=== PATIENT | female | born 1930 | race Caucasian/White ===

== ENCOUNTER 2017-11-21 09:02 | Outpatient (CLI) | payer MEDICARE, OTHER | END 2017-11-21 09:03 | disposition home or self-care (01) | LOC: BICULT 09:02 | PROVIDERS: ATTEND Internal Medicine | DX: R59.9 Enlarged lymph nodes, unspecified (principal) | CPT/HCPCS: 76536 ==

== ENCOUNTER 2021-11-30 21:46 | Inpatient (IN) | payer OTHER, MEDICARE ==
[2021-11-30] MEDS ORDERED: Ondansetron PF 4 MG/2 ML Vial ONE (22:22)
[2021-11-30] MEDS ORDERED: Morphine 4 MG/ML VIAL ONE ×2 (22:22→23:34)
[2021-11-30 23:07] LABS: #Lymphocytes 0.7 thou/uL (1.20-3.40); #Monocytes 0.3 thou/uL (0.11-0.59); #Neutrophils 6.1 thou/uL (1.40-6.50); %Basophils 0.2 % (0.0-1.0); %Eosinophils 0.3 % (0.0-10.0); %Lymphocytes 9.4 % (21.0-51.0); %Monocytes 3.8 % (0.0-10.0); %Neutrophils 86.3 % (42.0-75.0); Hemoglobin 10.8 g/dL (12.0-16.0); Mean Corpuscular HGB CONC 31.6 g/dL (32.0-36.0); Mean Corpuscular Hemoglobin 30.7 pg (27.0-31.0); Mean Corpuscular Volume 97.2 fL (78.0-98.0); Mean Platelet Volume 7.2 fL (7.4-10.4); Platelet Count 159 thou/uL (130-400); RBC Distribution Width 12.6 % (11.5-14.5); Red Blood Cell (RBC) Count 3.51 mill/uL (4.20-5.40); White Blood Cell (WBC) Count 7.1 thou/uL (4.8-10.8)
[2021-11-30 23:22] LABS: Anion Gap 15 mmol/L (10-20); BUN (Urea Nitrogen) 15 mg/dL (9.8-20.1); Calc. Creatinine Clearance 0 mL/min (70-130); Carbon Dioxide 23 mmol/L (23-31); Chloride 99 mmol/L (98-107); Potassium 4.3 mmol/L (3.5-5.1); Sodium 133 mmol/L (136-145)
[2021-11-30 23:23] LABS: ALT (SGPT) 13 U/L (8-55); AST (SGOT) 24 U/L (5-34); Albumin 4.2 g/dL (3.4-4.8); Alkaline Phosphatase 111 U/L (40-110); Bilirubin, Total 0.9 mg/dL (0.2-1.2); CK (CPK) 99 U/L (29-168); Calcium 8.9 mg/dL (7.8-10.44); Globulin 3.1 g/dL (2.4-3.5); Glucose 108 mg/dL (83-110); Protein, Total 7.3 g/dL (5.8-8.1)
[2021-11-30] MEDS ORDERED: Dextrose 5% in Water 1,000 ML IV PRN (23:34)
[2021-11-30] MEDS ORDERED: Ondansetron PF 4 MG/2 ML Vial IVP PRN (23:34)
[2021-11-30] MEDS ORDERED: Cyclobenzaprine 10 MG TAB ONE (23:34)
[2021-11-30] MEDS ORDERED: hydrALAZINE 20 MG/ML VIAL SLOW IVP PRN (23:34)
[2021-11-30] MEDS ORDERED: Dextrose 50% Abboject 50 ML SYRINGE SLOW IVP PRN (23:34)
[2021-11-30] MEDS ORDERED: Gabapentin 300 MG CAP PO SCH (23:45)
[2021-12-01 00:07] LABS: Magnesium 1.9 mg/dL (1.6-2.6); Phosphorus 3.2 mg/dL (2.3-4.7)
[2021-12-01] MEDS ORDERED: Sodium Phosphate 15 MMOL in Sodium Chloride 0.9% 250 ML 250 ML IVPB SCH (00:30)
[2021-12-01] MEDS: Acetaminophen 500 MG TAB PO SCH ×4 (02:45→23:22)
[2021-12-01] MEDS: traMADol HCl 50 MG TAB PO SCH ×3 (02:46→15:34)
[2021-12-01 02:58] LABS: Bilirubin Negative (Negative); Blood, Urine Negative (Negative); Clarity Clear (Clear); Glucose, Urine (Dipstick) Normal (Negative); Ketone, Urine 10 mg/dL (Negative); Leukocyte Negative Leu/uL (Negative); Nitrite Negative (Negative); Protein, Urine (Dipstick) Negative (Neg-Trace); Specific Gravity, Urine 1.009 (1.002-1.036); Urobilinogen Normal mg/dL (Less than 2); pH, Urine 7.5 (5.0-9.0)
[2021-12-01 03:46] LABS: SARS-CoV-2 NAA Rapid Test Not Detected (NotDetected)
[2021-12-01] MEDS: Ibuprofen 200 MG TAB PO SCH ×3 (06:19→23:23)
[2021-12-01] MEDS: Morphine 4 MG/ML VIAL SLOW IVP PRN ×2 (06:43→11:13)
[2021-12-01] MEDS: Gabapentin 300 MG CAP PO SCH ×2 (08:28→15:34)
[2021-12-01] MEDS: Famotidine 20 MG TAB PO SCH ×2 (08:28→20:45)
[2021-12-01] MEDS: Senokot S 8.6-50 MG TAB PO SCH ×3 (08:28→20:45)
[2021-12-01] MEDS: Cyclobenzaprine 10 MG TAB PO PRN (08:28)
[2021-12-01] MEDS ORDERED: Atenolol 25 MG TAB PO SCH (09:00)
[2021-12-01] MEDS: Polyethylene Glycol 3350 17 GM Packet PO SCH (10:59)
[2021-12-01] MEDS ORDERED: Clindamycin/D5W 900 MG in Premix Bag 1 BAG IVPB SCH (15:00)
[2021-12-01] MEDS ORDERED: traMADol HCl 50 MG TAB PO PRN (15:33)
[2021-12-01] MEDS ORDERED: Sodium Chloride 0.9% 500 ML IV SCH (15:45)
[2021-12-01] MEDS: Citalopram 20 MG TAB PO SCH (20:45)
[2021-12-01] MEDS: Melatonin 3 MG TAB PO SCH (20:45)
[2021-12-02] MEDS: Ibuprofen 200 MG TAB PO SCH (05:25)
[2021-12-02] MEDS: Levothyroxine Sodium 75 MCG TAB PO SCH (05:25)
[2021-12-02] MEDS: Acetaminophen 500 MG TAB PO SCH ×4 (05:26→22:31)
[2021-12-02 06:40] LABS: Anion Gap 13 mmol/L (10-20); BUN (Urea Nitrogen) 30 mg/dL (9.8-20.1); Calc. Creatinine Clearance 15 mL/min (70-130); Calcium 8.6 mg/dL (7.8-10.44); Carbon Dioxide 25 mmol/L (23-31); Chloride 98 mmol/L (98-107); Glucose 90 mg/dL (83-110); Magnesium 1.9 mg/dL (1.6-2.6); Phosphorus 4.4 mg/dL (2.3-4.7); Potassium 5.1 mmol/L (3.5-5.1); Sodium 131 mmol/L (136-145)
[2021-12-02 06:56] LABS: #Eosinphils 0.1 thou/uL (0.0-0.7); #Lymphocytes 0.6 thou/uL (1.20-3.40); #Monocytes 0.3 thou/uL (0.11-0.59); #Neutrophils 5.2 thou/uL (1.40-6.50); %Basophils 0.1 % (0.0-1.0); %Eosinophils 0.9 % (0.0-10.0); %Lymphocytes 10.2 % (21.0-51.0); %Monocytes 5.4 % (0.0-10.0); %Neutrophils 83.3 % (42.0-75.0); Hemoglobin 8.9 g/dL (12.0-16.0); Mean Corpuscular Hemoglobin 31.3 pg (27.0-31.0); Mean Platelet Volume 7.6 fL (7.4-10.4); Platelet Count 107 thou/uL (130-400); Platelet Morphology Comment Appears Decreased; RBC Distribution Width 12.6 % (11.5-14.5); Red Blood Cell (RBC) Count 2.84 mill/uL (4.20-5.40); White Blood Cell (WBC) Count 6.3 thou/uL (4.8-10.8)
[2021-12-02] MEDS: Polyethylene Glycol 3350 17 GM Packet PO SCH (07:16)
[2021-12-02] MEDS: Senokot S 8.6-50 MG TAB PO SCH ×2 (07:16→22:32)
[2021-12-02] MEDS ORDERED: Sodium Chloride 0.9% 1,000 ML IV SCH (08:15)
[2021-12-02] MEDS: Famotidine 20 MG TAB PO SCH (08:37)
[2021-12-02] MEDS ORDERED: Atenolol 25 MG TAB PO SCH (09:00)
[2021-12-02] MEDS: Ascorbic Acid 500 mg Chewable Tablet PO SCH ×2 (09:00→22:31)
[2021-12-02] MEDS: Atenolol 25 MG TAB PO SCH (09:00)
[2021-12-02] MEDS ORDERED: Levofloxacin 500 mg/D5W 100 ml Premix Bag ONE (10:37)
[2021-12-02] MEDS ORDERED: Clindamycin/D5W 900 mg/50 ml Premix Bag ONE (10:37)
[2021-12-02] MEDS ORDERED: fentaNYL Citrate/PF 100 MCG/2 ML SYRINGE ONE (11:09)
[2021-12-02] MEDS ORDERED: PROPOFOL 200 MG/20 ML VIAL ONE (11:49)
[2021-12-02] MEDS ORDERED: Dexamethasone 20 MG/5 ML VIAL ONE (11:49)
[2021-12-02] MEDS ORDERED: Ondansetron PF 4 MG/2 ML Vial ONE (11:49)
[2021-12-02] MEDS ORDERED: Rocuronium Bromide 10 MG/ML (10ML VIAL) ONE (11:49)
[2021-12-02] MEDS ORDERED: ePHEDrine 50 MG/ML VIAL ONE (11:49)
[2021-12-02] MEDS ORDERED: PHENYLEPHRINE-NS 100 MCG/ML 10 ML SYRINGE ONE ×2 (11:49→13:21)
[2021-12-02] MEDS ORDERED: Metoprolol Tartrate 5 MG/5 ML VIAL ONE (11:49)
[2021-12-02] MEDS ORDERED: Lidocaine 1% PF 5 ML VIAL ONE (11:49)
[2021-12-02] MEDS ORDERED: Glycopyrrolate 0.2 MG/ML 5 ML SYRINGE ONE (11:49)
[2021-12-02] MEDS ORDERED: Promethazine HCl 25 MG/ML VIAL IVPB PRN (14:23)
[2021-12-02] MEDS ORDERED: Ondansetron HCl/PF 4 MG/2 ML Vial IVP PRN (14:23)
[2021-12-02] MEDS ORDERED: Promethazine HCl 25 MG/ML VIAL IM PRN (14:23)
[2021-12-02 15:36] LABS: #Lymphocytes 0.3 thou/uL (1.20-3.40); #Monocytes 0.2 thou/uL (0.11-0.59); #Neutrophils 11.7 thou/uL (1.40-6.50); %Basophils 0.1 % (0.0-1.0); %Eosinophils 0.2 % (0.0-10.0); %Lymphocytes 2.7 % (21.0-51.0); %Monocytes 1.6 % (0.0-10.0); %Neutrophils 95.5 % (42.0-75.0); Hemoglobin 7.4 g/dL (12.0-16.0); Mean Corpuscular Hemoglobin 31.6 pg (27.0-31.0); Mean Corpuscular Volume 98.5 fL (78.0-98.0); Mean Platelet Volume 7.3 fL (7.4-10.4); Platelet Count 95 thou/uL (130-400); RBC Distribution Width 12.5 % (11.5-14.5); Red Blood Cell (RBC) Count 2.35 mill/uL (4.20-5.40); White Blood Cell (WBC) Count 12.3 thou/uL (4.8-10.8)
[2021-12-02 15:55] LABS: Phosphorus 4.5 mg/dL (2.3-4.7)
[2021-12-02 15:56] LABS: Anion Gap 14 mmol/L (10-20); BUN (Urea Nitrogen) 33 mg/dL (9.8-20.1); Calc. Creatinine Clearance 16 mL/min (70-130); Calcium 7.9 mg/dL (7.8-10.44); Carbon Dioxide 20 mmol/L (23-31); Chloride 102 mmol/L (98-107); Glucose 105 mg/dL (83-110); Magnesium 1.6 mg/dL (1.6-2.6); Potassium 4.3 mmol/L (3.5-5.1); Sodium 132 mmol/L (136-145)
[2021-12-02] MEDS: Ferrous Sulfate 325 MG TAB PO SCH (19:40)
[2021-12-02] MEDS ORDERED: Clindamycin/D5W 900 MG in Premix Bag 1 BAG IVPB SCH (20:00)
[2021-12-02] MEDS ORDERED: Magnesium 2 GM/50 ML(in water) 2 GM in Premix Bag 1 BAG IVPB SCH ×2 (20:15→23:59)
[2021-12-02] MEDS: Citalopram 20 MG TAB PO SCH (22:30)
[2021-12-02] MEDS: Melatonin 3 MG TAB PO SCH (22:32)
[2021-12-02] MEDS: Clindamycin/D5W 900 MG in Premix Bag 1 BAG IVPB SCH (23:56)
[2021-12-03] MEDS: Cyclobenzaprine 10 MG TAB PO PRN (00:44)
[2021-12-03] MEDS: Morphine 4 MG/ML VIAL SLOW IVP PRN (02:22)
[2021-12-03] MEDS ORDERED: Sodium Chloride 0.9% 500 ML IVPB SCH (03:15)
[2021-12-03] MEDS: Acetaminophen 500 MG TAB PO SCH ×3 (05:58→15:10)
[2021-12-03] MEDS: Clindamycin/D5W 900 MG in Premix Bag 1 BAG IVPB SCH (05:58)
[2021-12-03] MEDS: Levothyroxine Sodium 75 MCG TAB PO SCH (05:58)
[2021-12-03 06:46] LABS: #Lymphocytes 0.3 thou/uL (1.20-3.40); #Monocytes 0.2 thou/uL (0.11-0.59); #Neutrophils 6.1 thou/uL (1.40-6.50); %Eosinophils 0.1 % (0.0-10.0); %Neutrophils 92.9 % (42.0-75.0); Hemoglobin 6.9 g/dL (12.0-16.0); Mean Corpuscular HGB CONC 32.8 g/dL (32.0-36.0); Mean Corpuscular Hemoglobin 31.6 pg (27.0-31.0); Mean Corpuscular Volume 96.3 fL (78.0-98.0); Mean Platelet Volume 7.9 fL (7.4-10.4); Platelet Count 85 thou/uL (130-400); RBC Distribution Width 12.4 % (11.5-14.5); Red Blood Cell (RBC) Count 2.18 mill/uL (4.20-5.40); White Blood Cell (WBC) Count 6.5 thou/uL (4.8-10.8)
[2021-12-03 06:47] LABS: Anion Gap 12 mmol/L (10-20); BUN (Urea Nitrogen) 43 mg/dL (9.8-20.1); Calc. Creatinine Clearance 12 mL/min (70-130); Calcium 7.9 mg/dL (7.8-10.44); Carbon Dioxide 20 mmol/L (23-31); Chloride 99 mmol/L (98-107); Glucose 154 mg/dL (83-110); Magnesium 2.5 mg/dL (1.6-2.6); Phosphorus 5.4 mg/dL (2.3-4.7); Sodium 126 mmol/L (136-145)
[2021-12-03] MEDS ORDERED: Sodium Chloride 0.9% 1,000 ML IV SCH (08:15)
[2021-12-03] MEDS: Ferrous Sulfate 325 MG TAB PO SCH ×2 (09:22→18:37)
[2021-12-03] MEDS: Famotidine 20 MG TAB PO SCH (09:22)
[2021-12-03] MEDS: Polyethylene Glycol 3350 17 GM Packet PO SCH (09:22)
[2021-12-03] MEDS: Ascorbic Acid 500 mg Chewable Tablet PO SCH ×2 (09:22→21:36)
[2021-12-03] MEDS: Senokot S 8.6-50 MG TAB PO SCH ×2 (09:22→21:36)
[2021-12-03] MEDS: Atenolol 25 MG TAB PO SCH (09:27)
[2021-12-03] MEDS ORDERED: Calcium Carbonate 500 MG ChewTAB PO PRN (10:43)
[2021-12-03 14:24] LABS: #Lymphocytes 0.2 thou/uL (1.20-3.40); #Monocytes 0.4 thou/uL (0.11-0.59); #Neutrophils 7.8 thou/uL (1.40-6.50); %Lymphocytes 2.7 % (21.0-51.0); %Monocytes 4.4 % (0.0-10.0); %Neutrophils 92.9 % (42.0-75.0); Hemoglobin 6.4 g/dL (12.0-16.0); Mean Corpuscular HGB CONC 32.7 g/dL (32.0-36.0); Mean Corpuscular Hemoglobin 31.3 pg (27.0-31.0); Mean Corpuscular Volume 95.7 fL (78.0-98.0); Mean Platelet Volume 7.3 fL (7.4-10.4); Platelet Count 81 thou/uL (130-400); RBC Distribution Width 12.5 % (11.5-14.5); Red Blood Cell (RBC) Count 2.04 mill/uL (4.20-5.40); White Blood Cell (WBC) Count 8.5 thou/uL (4.8-10.8)
[2021-12-03] MEDS: traMADol HCl 50 MG TAB PO SCH ×2 (15:12→21:32)
[2021-12-03] MEDS: Melatonin 3 MG TAB PO SCH (21:36)
[2021-12-03] MEDS: Citalopram 20 MG TAB PO SCH (21:36)
[2021-12-03 21:44] LABS: Hemoglobin 7.2 g/dL (12.0-16.0)
[2021-12-04] MEDS: Acetaminophen 500 MG TAB PO SCH ×4 (00:06→18:22)
[2021-12-04] MEDS: Cyclobenzaprine 10 MG TAB PO PRN ×2 (00:06→12:40)
[2021-12-04] MEDS ORDERED: Morphine 2 MG/ML VIAL SLOW IVP SCH (01:00)
[2021-12-04 05:30] LABS: Anion Gap 13 mmol/L (10-20); BUN (Urea Nitrogen) 50 mg/dL (9.8-20.1); Calc. Creatinine Clearance 11 mL/min (70-130); Calcium 7.6 mg/dL (7.8-10.44); Carbon Dioxide 14 mmol/L (23-31); Chloride 98 mmol/L (98-107); Glucose 113 mg/dL (83-110); Magnesium 2.4 mg/dL (1.6-2.6); Potassium 5.2 mmol/L (3.5-5.1); Sodium 120 mmol/L (136-145)
[2021-12-04 05:44] LABS: Phosphorus 4.6 mg/dL (2.3-4.7)
[2021-12-04] MEDS: Levothyroxine Sodium 75 MCG TAB PO SCH (05:49)
[2021-12-04 07:22] LABS: Hemoglobin 6.9 g/dL (12.0-16.0); Mean Corpuscular HGB CONC 33.2 g/dL (32.0-36.0); Mean Corpuscular Hemoglobin 32.4 pg (27.0-31.0); Mean Corpuscular Volume 97.6 fL (78.0-98.0); Mean Platelet Volume 5.6 fL (7.4-10.4); Platelet Count 75 thou/uL (130-400); RBC Distribution Width 13.6 % (11.5-14.5); Red Blood Cell (RBC) Count 2.13 mill/uL (4.20-5.40); White Blood Cell (WBC) Count 7.4 thou/uL (4.8-10.8)
[2021-12-04 07:23] LABS: #Basophils 0.1 thou/uL (0.0-0.2); #Lymphocytes 0.5 thou/uL (1.20-3.40); #Monocytes 0.6 thou/uL (0.11-0.59); #Neutrophils 6.3 thou/uL (1.40-6.50); %Basophils 0.9 % (0.0-1.0); %Eosinophils 0.5 % (0.0-10.0); %Lymphocytes 6.3 % (21.0-51.0); %Monocytes 7.5 % (0.0-10.0); %Neutrophils 84.7 % (42.0-75.0)
[2021-12-04] MEDS: Famotidine 20 MG TAB PO SCH (09:13)
[2021-12-04] MEDS: Polyethylene Glycol 3350 17 GM Packet PO SCH (09:13)
[2021-12-04] MEDS: Atenolol 25 MG TAB PO SCH (09:13)
[2021-12-04] MEDS: Ascorbic Acid 500 mg Chewable Tablet PO SCH ×2 (09:14→20:41)
[2021-12-04] MEDS: Senokot S 8.6-50 MG TAB PO SCH (09:14)
[2021-12-04] MEDS: Ferrous Sulfate 325 MG TAB PO SCH ×3 (09:14→20:41)
[2021-12-04] MEDS: traMADol HCl 50 MG TAB PO SCH ×3 (09:20→22:08)
[2021-12-04 09:53] LABS: INR-International Normal Ratio 1.1; PTT 34.3 sec (22.9-36.1); Prothrombin Time 14.5 sec (12.0-14.7)
[2021-12-04] MEDS: Sodium Bicarbonate 150 MEQ in Dextrose 5% in Water 1,000 ML IV SCH (12:34)
[2021-12-04] MEDS ORDERED: diphenhydrAMINE 30 GM TUBE TOP PRN (13:27)
[2021-12-04] MEDS ORDERED: Polyethylene Glycol 3350 17 GM Packet PO PRN (18:40)
[2021-12-04] MEDS ORDERED: Senokot S 8.6-50 MG TAB PO PRN (18:40)
[2021-12-04] MEDS: Melatonin 3 MG TAB PO SCH (20:41)
[2021-12-05] MEDS: Acetaminophen 500 MG TAB PO SCH ×5 (00:56→23:19)
[2021-12-05] MEDS: Cyclobenzaprine 10 MG TAB PO PRN ×3 (02:21→15:31)
[2021-12-05] MEDS: Sodium Bicarbonate 150 MEQ in Dextrose 5% in Water 1,000 ML IV SCH (02:33)
[2021-12-05] MEDS: traMADol HCl 50 MG TAB PO SCH ×3 (05:29→21:29)
[2021-12-05] MEDS: Levothyroxine Sodium 75 MCG TAB PO SCH (05:30)
[2021-12-05 05:46] LABS: #Eosinphils 0.1 thou/uL (0.0-0.7); #Lymphocytes 0.7 thou/uL (1.20-3.40); #Monocytes 0.5 thou/uL (0.11-0.59); #Neutrophils 4.8 thou/uL (1.40-6.50); %Basophils 0.1 % (0.0-1.0); %Eosinophils 1.9 % (0.0-10.0); %Lymphocytes 10.7 % (21.0-51.0); %Monocytes 8.3 % (0.0-10.0); Hemoglobin 8.6 g/dL (12.0-16.0); Mean Corpuscular HGB CONC 33.8 g/dL (32.0-36.0); Mean Corpuscular Hemoglobin 30.5 pg (27.0-31.0); Mean Corpuscular Volume 90.3 fL (78.0-98.0); Platelet Count 114 thou/uL (130-400)
[2021-12-05 06:00] LABS: Anion Gap 9 mmol/L (10-20); BUN (Urea Nitrogen) 44 mg/dL (9.8-20.1); Calc. Creatinine Clearance 17 mL/min (70-130); Calcium 8.4 mg/dL (7.8-10.44); Carbon Dioxide 28 mmol/L (23-31); Chloride 96 mmol/L (98-107); Glucose 101 mg/dL (83-110); Potassium 3.9 mmol/L (3.5-5.1); Sodium 129 mmol/L (136-145)
[2021-12-05 06:30] LABS: Magnesium 2.1 mg/dL (1.6-2.6); Phosphorus 2.9 mg/dL (2.3-4.7)
[2021-12-05] MEDS: Sodium Chloride 0.9% 1,000 ML IV SCH ×2 (09:26→22:07)
[2021-12-05] MEDS: Ascorbic Acid 500 mg Chewable Tablet PO SCH ×2 (09:26→21:29)
[2021-12-05] MEDS: Famotidine 20 MG TAB PO SCH (09:26)
[2021-12-05] MEDS: Ferrous Sulfate 325 MG TAB PO SCH ×2 (09:26→21:29)
[2021-12-05] MEDS: Atenolol 25 MG TAB PO SCH (09:26)
[2021-12-05] MEDS ORDERED: Polyethylene Glycol 3350 17 GM Packet PO SCH (12:30)
[2021-12-05] MEDS: Gabapentin 300 MG CAP PO SCH (17:56)
[2021-12-05] MEDS ORDERED: Sodium Chloride 0.9% 1,000 ML IV SCH (18:00)
[2021-12-05] MEDS: Melatonin 3 MG TAB PO SCH (21:29)
[2021-12-05] MEDS: Senokot S 8.6-50 MG TAB PO SCH (21:39)
[2021-12-05] MEDS ORDERED: Lorazepam 0.5 MG TAB PO PRN (23:43)
[2021-12-06] MEDS: Levothyroxine Sodium 75 MCG TAB PO SCH (04:11)
[2021-12-06] MEDS: traMADol HCl 50 MG TAB PO SCH ×2 (05:26→14:32)
[2021-12-06] MEDS: Acetaminophen 500 MG TAB PO SCH ×2 (05:26→11:45)
[2021-12-06 06:17] LABS: Anion Gap 10 mmol/L (10-20); BUN (Urea Nitrogen) 25 mg/dL (9.8-20.1); Calc. Creatinine Clearance 27 mL/min (70-130); Calcium 8.5 mg/dL (7.8-10.44); Carbon Dioxide 28 mmol/L (23-31); Chloride 103 mmol/L (98-107); Glucose 94 mg/dL (83-110); Magnesium 1.7 mg/dL (1.6-2.6); Potassium 3.7 mmol/L (3.5-5.1); Sodium 137 mmol/L (136-145)
[2021-12-06] MEDS ORDERED: Magnesium Sulfate 3 GM in Sodium Chloride 0.9% 100 ML IVPB SCH (06:30)
[2021-12-06] MEDS ORDERED: Polyethylene Glycol 3350 17 GM Packet PO SCH (09:00)
[2021-12-06] MEDS ORDERED: Amlodipine 5 MG TAB PO SCH (09:00)
[2021-12-06] MEDS ORDERED: Atenolol 50 MG TAB PO SCH (09:00)
[2021-12-06] MEDS: Ascorbic Acid 500 mg Chewable Tablet PO SCH (09:10)
[2021-12-06] MEDS: Gabapentin 300 MG CAP PO SCH (09:10)
[2021-12-06] MEDS: Ferrous Sulfate 325 MG TAB PO SCH (09:10)
[2021-12-06] MEDS: Senokot S 8.6-50 MG TAB PO SCH (09:10)
[2021-12-06 12:27] VITALS: BP 155/81; TEMP 98.3
[2021-12-06] MEDS ORDERED: Lorazepam 0.5 MG TAB PO PRN (14:13)
== END 2021-12-06 14:57 | DRG 480 ==
LOC: ERS 21:46 → SURG A 23:13 → NEURO 12-03 12:28 → SJJU 12-04 22:33
PROVIDERS: ADMIT Student in an Organized Health Care Education/Training Program; ATTEND Surgery
PROC: 0QH736Z Insertion of Intramedullary Internal Fixation Device into Left Upper Femur, Percutaneous Approach (ICD-10-PCS; principal; 2021-12-02)
PROC: 30233N1 Transfusion of Nonautologous Red Blood Cells into Peripheral Vein, Percutaneous Approach (ICD-10-PCS; 2021-12-02)
DX: S72.22XA Displaced subtrochanteric fracture of left femur, initial encounter for closed fracture (principal); N17.0 Acute kidney failure with tubular necrosis; I48.21 Permanent atrial fibrillation; D62 Acute posthemorrhagic anemia; E87.1 Hypo-osmolality and hyponatremia; W01.0XXA Fall on same level from slipping, tripping and stumbling without subsequent striking against object, initial encounter; Z20.822 Contact with and (suspected) exposure to COVID-19; E78.00 Pure hypercholesterolemia, unspecified; E78.5 Hyperlipidemia, unspecified; I12.9 Hypertensive chronic kidney disease with stage 1 through stage 4 chronic kidney disease, or unspecified chronic kidney disease; K21.9 Gastro-esophageal reflux disease without esophagitis; N18.9 Chronic kidney disease, unspecified; E03.9 Hypothyroidism, unspecified; I25.10 Atherosclerotic heart disease of native coronary artery without angina pectoris; M81.0 Age-related osteoporosis without current pathological fracture; Z90.49 Acquired absence of other specified parts of digestive tract; Z88.0 Allergy status to penicillin; Z79.890 Hormone replacement therapy; Z79.899 Other long term (current) drug therapy; Z79.01 Long term (current) use of anticoagulants; Z90.710 Acquired absence of both cervix and uterus; E87.6 Hypokalemia; G25.81 Restless legs syndrome
CPT/HCPCS: 36415; 36430; 70450; 71045; 76000; 76705; 80048; 80053; 81003; 82533; 82550; 83735; 83880; 84100; 84484; 85025; 85610; 85730; 86850; 86900; 86901; 93005; 93010; 93306; 96374; 96375; 96376; C1713; G0390; J1100; J1956; J2270; J2405; J2704; J3475; J3490; J7030; J7050; J7070; P9016; U0002

== ENCOUNTER 2022-03-02 09:52 | Outpatient (CLI) | payer MEDICARE, OTHER ==
[2022-03-02 12:07] LABS: Hemoglobin 11.5 g/dL (12.0-15.5); Mean Corpuscular HGB CONC 33.4 g/dL (32.0-36.0); Mean Corpuscular Hemoglobin 31.6 pg (27.0-33.0); Mean Corpuscular Volume 94.5 fl (81.6-98.3); Platelet Count 190 10x3/uL (150-450); RBC Distribution Width 13.2 % (11.5-14.5); Red Blood Cell (RBC) Count 3.64 10x6/uL (3.90-5.03); White Blood Cell (WBC) Count 3.6 10x3/uL (3.5-10.5)
[2022-03-02 12:16] LABS: Bilirubin Neg (Negative); Blood, Urine 25 (Negative); Clarity Clear (Clear); Glucose, Urine (Dipstick) Normal (Negative); Ketone, Urine Negative (Negative); Leukocyte 25 (Negative); Nitrite Negative (Negative); Protein, Urine (Dipstick) Negative (Neg-Trace); Urobilinogen Normal mg/dL (Less than 2)
[2022-03-02 12:26] LABS: INR-International Normal Ratio 1.1; PTT 32.5 sec (22.0-33.0); Prothrombin Time 12.2 sec (9.5-12.1)
[2022-03-02 12:33] LABS: ALT (SGPT) 14 U/L (8-55); AST (SGOT) 22 U/L (5-34); Albumin 4.1 g/dL (3.4-4.8); Alkaline Phosphatase 132 U/L (40-110); Anion Gap 12 mmol/L (10-20); BUN (Urea Nitrogen) 10 mg/dL (9.8-20.1); Bilirubin, Total 0.7 mg/dL (0.2-1.2); Calc. Creatinine Clearance 0 mL/min (70-130); Calcium 9.4 mg/dL (7.8-10.44); Carbon Dioxide 30 mmol/L (23-31); Chloride 100 mmol/L (98-107); Estimated GFR 65; Globulin 3.2 g/dL (2.4-3.5); Glucose 92 mg/dL (83-110); Potassium 4.2 mmol/L (3.5-5.1); Protein, Total 7.3 g/dL (5.8-8.1); Sodium 138 mmol/L (136-145)
== END 2022-03-02 09:53 | disposition home or self-care (01) ==
LOC: LABBT 09:52
PROVIDERS: ATTEND Internal Medicine Cardiovascular Disease
DX: Z01.818 Encounter for other preprocedural examination (principal); I48.21 Permanent atrial fibrillation; R29.6 Repeated falls; Z20.822 Contact with and (suspected) exposure to COVID-19
CPT/HCPCS: 80053; 81003; 85027; 85610; 85730; 87811; 93005; 93010

== ENCOUNTER 2022-04-19 11:01 | Outpatient (CLI) | payer MEDICARE, OTHER ==
[2022-04-19 13:48] LABS: Hemoglobin 12.1 g/dL (12.0-15.5); Mean Corpuscular HGB CONC 33.4 g/dL (32.0-36.0); Mean Corpuscular Hemoglobin 31.3 pg (27.0-33.0); Mean Corpuscular Volume 93.5 fl (81.6-98.3); Mean Platelet Volume 10.5 fl (7.4-10.4); Platelet Count 200 10x3/uL (150-450); RBC Distribution Width 13.2 % (11.5-14.5); Red Blood Cell (RBC) Count 3.87 10x6/uL (3.90-5.03); White Blood Cell (WBC) Count 3.1 10x3/uL (3.5-10.5)
[2022-04-19 13:59] LABS: Anion Gap 15 mmol/L (10-20); BUN (Urea Nitrogen) 12 mg/dL (9.8-20.1); Calc. Creatinine Clearance 0 mL/min (70-130); Calcium 9.3 mg/dL (7.8-10.44); Carbon Dioxide 29 mmol/L (23-31); Chloride 99 mmol/L (98-107); Estimated GFR 60; Glucose 86 mg/dL (83-110); Potassium 4.6 mmol/L (3.5-5.1); Sodium 138 mmol/L (136-145)
== END 2022-04-19 11:02 | disposition home or self-care (01) ==
LOC: LABBT 11:01
PROVIDERS: ATTEND Internal Medicine Cardiovascular Disease
DX: Z01.812 Encounter for preprocedural laboratory examination (principal); Z20.822 Contact with and (suspected) exposure to COVID-19
CPT/HCPCS: 80048; 85027; 87811

== ENCOUNTER 2022-04-23 08:18 | Day surgery (SDC) | payer MEDICARE, OTHER ==
[2022-04-23] MEDS ORDERED: Lidocaine 1% PF 5 ML VIAL ONE (12:24)
[2022-04-23] MEDS ORDERED: PROPOFOL 200 MG/20 ML VIAL ONE (12:24)
== END 2022-04-23 14:22 | disposition home or self-care (01) ==
LOC: SDC 08:18
PROVIDERS: ATTEND Internal Medicine Cardiovascular Disease
DX: I48.21 Permanent atrial fibrillation (principal); I34.0 Nonrheumatic mitral (valve) insufficiency; I51.7 Cardiomegaly; Z20.822 Contact with and (suspected) exposure to COVID-19; Z79.01 Long term (current) use of anticoagulants
CPT/HCPCS: 93312; J2704